=== PATIENT | male | born 1945 | race Caucasian/White ===

== ENCOUNTER 2016-12-19 13:56 | Outpatient (CLI) | payer MEDICARE, OTHER | END 2016-12-19 13:57 | disposition home or self-care (01) | DX: R05 Cough (principal) ==

== ENCOUNTER 2017-06-05 09:16 | Outpatient (CLI) | payer MEDICARE, OTHER | END 2017-06-05 09:17 | disposition home or self-care (01) | LOC: SC 09:16 | PROVIDERS: ATTEND Internal Medicine Pulmonary Disease | DX: G47.33 Obstructive sleep apnea (adult) (pediatric) (principal) | CPT/HCPCS: 99203; G0463; 99212 ==

== ENCOUNTER 2017-06-20 21:59 | Outpatient (CLI) | payer MEDICARE, OTHER | END 2017-06-20 22:00 | disposition home or self-care (01) | LOC: SC 21:59 | PROVIDERS: ATTEND Internal Medicine Pulmonary Disease | DX: G47.33 Obstructive sleep apnea (adult) (pediatric) (principal); Z68.33 Body mass index [BMI] 33.0-33.9, adult | CPT/HCPCS: 95810 ==

== ENCOUNTER 2017-07-04 10:21 | Outpatient (CLI) | payer MEDICARE, OTHER | END 2017-07-04 10:22 | disposition home or self-care (01) | LOC: SC 10:21 | PROVIDERS: ATTEND Nurse Practitioner Family | DX: G47.33 Obstructive sleep apnea (adult) (pediatric) (principal) | CPT/HCPCS: 99214; G0463; 99212 ==

== ENCOUNTER 2017-09-07 21:39 | Outpatient (CLI) | payer MEDICARE, OTHER | END 2017-09-07 21:40 | disposition home or self-care (01) | LOC: SC 21:39 | PROVIDERS: ATTEND Internal Medicine Pulmonary Disease | DX: G47.33 Obstructive sleep apnea (adult) (pediatric) (principal); G47.61 Periodic limb movement disorder | CPT/HCPCS: 95811 ==

== ENCOUNTER 2017-09-26 13:51 | Outpatient (CLI) | payer MEDICARE, OTHER | END 2017-09-26 13:52 | disposition home or self-care (01) | LOC: SC 13:51 | PROVIDERS: ATTEND Nurse Practitioner Family | DX: G47.33 Obstructive sleep apnea (adult) (pediatric) (principal); I49.3 Ventricular premature depolarization | CPT/HCPCS: 99214; G0463; 99212 ==

== ENCOUNTER 2017-12-25 09:41 | Outpatient (CLI) | payer MEDICARE, OTHER | END 2017-12-25 09:42 | disposition home or self-care (01) | LOC: SC 09:41 | PROVIDERS: ATTEND Nurse Practitioner Family | DX: G47.33 Obstructive sleep apnea (adult) (pediatric) (principal) | CPT/HCPCS: 99214 ==

== ENCOUNTER 2018-06-25 11:13 | Outpatient (CLI) | payer MEDICARE, OTHER | END 2018-06-25 11:14 | disposition home or self-care (01) | LOC: SC 11:13 | PROVIDERS: ATTEND Nurse Practitioner Family | DX: G47.33 Obstructive sleep apnea (adult) (pediatric) (principal); I49.9 Cardiac arrhythmia, unspecified | CPT/HCPCS: 93005; 99215; G0463; 99212 ==

== ENCOUNTER 2018-06-25 12:48 | Outpatient (CLI) | payer MEDICARE, OTHER | END 2018-06-25 12:49 | disposition home or self-care (01) | LOC: RT 12:48 | PROVIDERS: ATTEND Nurse Practitioner Family | DX: I49.9 Cardiac arrhythmia, unspecified (principal) | CPT/HCPCS: 93005 ==

== ENCOUNTER 2018-07-15 13:36 | Outpatient (CLI) | payer MEDICARE, OTHER | END 2018-07-15 13:37 | disposition home or self-care (01) | LOC: DI 13:36 | PROVIDERS: ATTEND Physician Assistant | DX: Z13.6 Encounter for screening for cardiovascular disorders (principal) | CPT/HCPCS: 93306 ==

== ENCOUNTER 2019-07-16 15:20 | Outpatient (CLI) | payer MEDICARE, OTHER ==
[2019-07-16 16:13] VITALS: BP 128/70
--- NOTE | 2019-07-16 16:13 | SLEEP CARE CONSULTATION ---
Information from patient questionnaire entered by Yaneth Perez. I have reviewed and concur with the information entered by Yaneth Perez. This document represents the service I personally performed and the decisions made by me, Karen Meza, RN, MSN, CELL LINER. History of Present Illness Previous diagnosis: Mild, Obstructive Sleep Apnea-Hypopnea Syndrome AHI: 9.9 Reason for follow up: annual Equipment type: CPAP Equipment obtained from: [facility] (repeated attempts to get supplies) Mask style: Nasal Mask brand: Respironics Backup mask available: Yes Last cushion change: 1-2 months ago Prior sleep studies: Yes HPI additional information: Patient had his EKG as ordered after last annual and followed up with PCP. He was sent to a commercial real estate assistant after a ECHO and repeat EKG for further evaluation. It is noted that he had PVCs no treatment indicated except a statin. 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 denies: aerophagia, mask discomfort, air blowing in eyes, mask leak noise, condensation in mask/hose, nasal congestion, dry mouth, nose, throat, epistaxis Observed to snore while using device: No Current pressure setting perceived as: comfortable On therapy, patient: reports: sleeping better, awakening more refreshed, being more awake and alert during the day, more rested overall. denies: drowsiness while driving Initial [place] Sleepiness Scale score: 12 Current [place] Sleepiness Scale score: 7 Allergies and Home Medications Known drug allergies: No Home medication list reviewed: Yes Allergy and home medication list: Medication Name (generic/name brand) Strength & Dosage Lisinopril 20mg tab one daily Citalopram 20mg tab one daily atorvastatin 10mg daily Review of Systems Review of systems same as previous: Yes Physical Exam Blood Pressure: 128/70 Cuff size: long Heart Rate: 96 O2 Saturation: 68 Height: 5 ft 6.5 in Weight: 228 lb 9.6 oz Body Mass Index: 36.3 BMI Classification: Obesity Class 2 Impression and Plan 1. Obstructive Sleep Apnea-Hypopnea Syndrome, mild, with good treatment compliance and good apnea control. On CPAP therapy, the patient has better sleep quality and is more rested overall. Since his apnea is more severe in REM sleep and he is taking off his CPAP in later sleep when REM is more prevalent, he is advised of importance to use CPAP with all sleep. I showed him his polysomnography hypnogram and moderate hypoxia associated with sleep apnea especially in REM sleep. To prevent from not using CPAP after using the bathroom, he is to keep his mask on and unhook hose or put mask on pillow to remind him to use. He agreed with plan. He also had questions about upcoming trip and whether he should bring his CPAP. I encouraged him to bring due to moderate hypoxia, again with rationale explained. Patient's apnea severity and rationale for treatment to reduce apnea, improve sleep quality and reduce cardiovascular and cerebrovascular events was reviewed. I also reviewed the benefit of consistent device use of CPAP for hypertension, depression/anxiety. Since apnea is more severe supine, if unable to use CPAP, he is to avoid sleep ing on his back. For his supply concerns, I advised him that he could continue with current company and reach out again or he could transfer to new DME. This would require a DWO prescription. Patient would like to stay with current company at this time but wanted to know his choices of DME if he changes his mind. I will have display coordinator inform him of DME options. * Continue CPAP pressure at 7 cmH2O * Use CPAP with all sleep * Notify me if snoring with mask or feeling that the pressure is too much or too little * Attempt to lose weight * Return for follow up in 1 year , or sooner if concerns arise I spent 100% of this 30 minute visit face to face with the patient with greater than 50% of this was spent time counseling the patient and coordination of care.
== END 2019-07-16 15:21 | disposition home or self-care (01) ==
LOC: SC 15:20
PROVIDERS: ATTEND Nurse Practitioner Family
DX: G47.33 Obstructive sleep apnea (adult) (pediatric) (principal); E66.9 Obesity, unspecified; Z68.36 Body mass index [BMI] 36.0-36.9, adult
CPT/HCPCS: 99214; G0463; 99212

== ENCOUNTER 2020-07-29 11:48 | Outpatient (CLI) | payer MEDICARE, OTHER ==
--- NOTE | 2020-07-29 09:53 | SLEEP CARE CONSULTATION ---
Information from patient questionnaire entered by Georgette Swain. I have reviewed and concur with the information entered by Georgette Swain. This document represents the service I personally performed and the decisions made by me, Karen Meza, RN, MSN, HEALTHCARE RECRUITER. History of Present Illness Service Date and Time: 07/29/2020 09 Previous diagnosis: Mild, Obstructive Sleep Apnea-Hypopnea Syndrome AHI: 9.9 (in 2017) Reason for follow up: annual (last seen 07/2019) Equipment type: CPAP Equipment obtained from: [employer] Mask style: Nasal (Dreamwear) Backup mask available: Yes (old mask ) Last cushion change: 3 weeks ago Prior sleep studies: Yes Year and Where: 2017 - [facility] Type of Sleep Study: Polysomnography HPI additional information: Reviewed past annual visit note to prepare for this visit as time limited for a telemed visit with his insurance. CPAP Compliance Data - Data Reviewed with Patient Average duration of nightly device use: 6 hr 39 min Compliance rate %: 96.7 (180 days) Current pressure setting (cmH2O): 7 Humidity settin Heated hose settin Average residual AHI: 2.5 Average large leak: 5 min 32 sec Subjective Patient concerns: reports: mask leak noise (only when he sleeps on his side). denies: aerophagia, mask discomfort, air blowing in eyes, condensation in mask/hose, nasal congestion, dry mouth, nose, throat, epistaxis, other Observed to snore while using device: No Current pressure setting perceived as: comfortable On therapy, patient: reports: sleeping better, awakening more refreshed, being more awake and alert during the day, more rested overall. denies: drowsiness while driving Initial [place] Sleepiness Scale score: 12 (in 2017) Physical Exam Height: 5 ft 6.5 in Impression and Plan 1. Obstructive Sleep Apnea-Hypopnea Syndrome, mild, with good treatment compliance and good apnea control. On CPAP therapy, the patient has better sleep quality and is more rested overall. Patient is pleased with CPAP treatment benefit. His transfer to [facility] went well and is receiving supplies as needed. To reduce mask leaks when sleeping on his side, I informed him of a CPAP pillow. Several CPAP styles can be found online. I also advised him to change his mask cushion due to increase in recent mask leaks.He is no longer taking off CPAP mask after use of the bathroom as advised last visit. I again reviewed that his apnea is more severe in REM and supine sleep. Since patient has more severe apnea in supine position, patient advised to avoid supine sleep with pillow positioning if unable to use CPAP while ill or if without electricity to reduce apnea risk. Patient's apnea severity and rationale for treatment to reduce apnea, improve sleep quality and reduce cardiovascular and cerebrovascular events was reviewed. I reviewed how significant weight loss and gain can affect his CPAP pressure and symptoms to report for pressure adjustment. * Continue CPAP pressure at 7 cmH2O * Consider CPAP pillow * Notify me if snoring with mask or feeling that the pressure is too much or too little * Attempt to lose weight * Call this office if any problems using CPAP * Return for follow up in 1year , or sooner if concerns arise Visit Type: Telehealth Phone Patient Location: Home Location of Provider: Home Patient agrees and consents to this telehealth visit type: Yes Patient agrees to have their insurance billed: Yes Time Spent with Patient (minutes): 11 Provider Statement: I spent 100% of the Telehealth Phone Call with the patient with greater than 50% spent counseling the patient and coordination of care.
== END 2020-07-29 11:49 | disposition home or self-care (01) ==
LOC: SC 11:48
PROVIDERS: ATTEND Nurse Practitioner Family
DX: G47.33 Obstructive sleep apnea (adult) (pediatric) (principal)